=== PATIENT | male | born 1965 | race Caucasian/White ===

== ENCOUNTER 2022-01-19 15:29 | Outpatient (REF) | payer BC, SELFPAY ==
[2022-01-19 17:50] LABS: T4 Thyroxine 6.5 ug/dL (4.5-12.0); Thyroid Stimulating Hormone 1.01 uIU/mL (0.32-4.0)
[2022-01-19 18:03] LABS: Folate 15.8 ng/mL (> or = 4.0); Vitamin B12 850 pg/mL (200-900)
== END 2022-01-19 15:30 | disposition home or self-care (01) ==
LOC: HO.LAB 15:29
PROVIDERS: Visit Provider Psychiatry & Neurology Neurology
DX: G31.84 Mild cognitive impairment of uncertain or unknown etiology (principal)
CPT/HCPCS: 36415; 82607; 82746; 84436; 84443

== ENCOUNTER → 2022-01-29 11:01 | Outpatient (REF) | payer BC, SELFPAY | LOC: HO.SL 11:01 | PROVIDERS: Visit Provider Psychiatry & Neurology Neurology | DX: G47.33 Obstructive sleep apnea (adult) (pediatric) (principal) | CPT/HCPCS: 95806 ==